=== PATIENT | male | born 1985 | race Caucasian/White ===

== ENCOUNTER 2023-08-16 01:28 | Emergency (ER) | payer SELFPAY ==
[~2023-08-16] VITALS: Ht 188 cm; Wt 86.2 kg
[2023-08-16 01:30] VITALS: BP 142/84; PULSE 88; RESP 18; TEMP 97.2; O2SAT 100
== END 2023-08-16 02:35 ==
LOC: MED 01:28
DX: Z02.89 Encounter for other administrative examinations (principal); V49.88XA Car occupant (driver) (passenger) injured in other specified transport accidents, initial encounter; Y93.89 Activity, other specified; Y92.89 Other specified places as the place of occurrence of the external cause; Y99.8 Other external cause status
CPT/HCPCS: 99283